=== PATIENT | female | born 1985 | race Caucasian/White ===

== ENCOUNTER 2017-04-17 02:25 | Inpatient (IN) | payer BC ==
[~2017-04-17 02:25] MED LIST: AMPICILLIN - 100 ML IVPB ONE
[2017-04-17] MEDS ORDERED: DEXTROSE 5%-LACTATED RINGERS 1,000 ML IV SCH (03:45)
[2017-04-17 03:54] LABS: BASOPHIL 0.6 % (0-2.0); EOSINOPHIL 0.4 % (0-4.5); MCH 30.5 pg (25.7-33.7); MCHC 33.3 g/dl (32.0-36.0); MEAN CELL VOLUME 91.4 fl (80-96); MEAN PLT VOLUME 12.3 fl (7.5-11.1); RDW 14.1 % (11.6-15.6); WHITE BLOOD COUNT 15.3 K/mm3 (4.0-10.0)
[2017-04-17 04:03] LABS: INR 1.04 (0.82-1.09); PROTHROMBIN TIME (PATIENT) 11.4 SEC (9.98-11.88)
[2017-04-17 04:06] LABS: ACTIVATED PTT 23.4 SECONDS (26.9-34.4)
[2017-04-17 04:12] LABS: ANION GAP 11 (8-16); CALCIUM 8.7 mg/dL (8.5-10.1); CO2 20 mmol/L (21-32); CREATININE 0.7 mg/dL (0.55-1.02); GLUCOSE,RANDOM 117 mg/dL (74-106)
[2017-04-17 04:27] LABS: PLATELET COUNT 147 K/MM3 (134-434)
[2017-04-17 04:28] VITALS: BMI 32.4
[2017-04-17 04:28] LABS: PLATELET COMMENT2 NO CLUMPING NOTED; PLATELET COMMENT3 NO CLOTTING DETECTED
[2017-04-17 04:42] LABS: HIV 1 & 2 AB NEGATIVE; HIV 1 AGp24 NEGATIVE
[2017-04-17] MEDS ORDERED: AMPICILLIN - 100 ML IVPB SCH (06:25)
[2017-04-17] MEDS: AMPICILLIN - 100 ML IVPB SCH ×5 (07:30→23:36)
[2017-04-17] MEDS ORDERED: DINOPROSTONE 10 MG VAGINAL SUPPOSITORY VG ONE (08:56)
--- NOTE | 2017-04-17 09:02 | HP ---
Past Medical History - Primary Care Physician PCP:: Miki Martínez - Admission Chief Complaint: 31yo P1 with at EGA 38w4d admitted with PROM at 1: 45am, not in labor. 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: No: Alzheimer's, CVA, Dementia, Migraine, Multiple Sclerosis, Peripheral Neuropathy, Parkinson's, Seizure, Syncope, TIA, Vertigo, Other Cardiovascular: No: AFIB, Aneurysm, Aortic Insufficiency, Aortic Stenosis, CAD, CHF, Deep Vein Thrombosis, HTN, Hyperlipdemia, PR, Mitral Insufficiency, Mitral Stenosis, Murmur, Pulmonary Hypertension, Other Pulmonary: No: Asthma, Bronchitis, Cancer, COPD, O2 Dependent, Pneumonia, Previously Intubated, Pulmonary Embolus, Pulmonary Fibrosis, Sleep Apnea, Other Gastrointestinal: No: Ascites, Cancer, Constipation, Crohn's Disease, Diverticulitis, Diverticulosis, Esophageal Varices, Gastritis, GERD, GI Bleed, Hemorrhoids, Hiatal Hernia, Inflamatory Bowel Disease, Irritable Bowel Disease, Pancreatitis, Peptic Ulcer Disease, Ulcerative Colitis, Other Hepatobiliary: No: Cirrhosis, Cholelithiasis, Cholecystitis, Choledocholithiasis , Hepatitis A, Hepatitis B, Hepatitis C, Other Renal/: No: Renal Failure, Renal Inusuff, BPH, Cancer, Hematuria, Hemodialysis , Neurogenic Bladder, Renal Calculi, UTI, Other Reproductive: Yes: Other (LEEP 2014) ...: 4 ...Para: 1 ...Term: 1 ...: 0 ...Spon : 0 ...Induced : 2 ...Multiple Gestation: 0 ...LMP: 07/21/16 ... Weeks Gestation by Dates: 38.4 ...EDC by Dates: 04/27/17 Heme/Onc: No: Anemia, B12 Deficiency, Bleeding Disorder, Cancer, Current Chemotherapy, Current Radiation Therapy, Hemochromatosis, Hypercoaguable State, Myeloproliferative Synd, Sickle Cell Disease, Sickle Cell Trait, Thrombocytopenia, Other Infectious Disease: No: AIDS, C-Diff, Herpes Zoster, HIV, MRSA, STD's, Tuberculosis, VREF, Other Psych: No: Addictions, Anxiety, Bipolar, Depression, Panic, Psychosis, Schizophrenia, Other Musculoskeletal: No: Bursitis, Chronic low back pain, Hemiparesis, Hemiplegia, Osteoarthritis, Paraplegia, Other Rheumatology: No: Fibromyalgia, Gout, Lupus, Rheumatoid Arthritis, Sarcoidosis, Vasculitis, Other ENT: No: Allergic Rhinitis, Sinusitis, Other Endocrine: No: Kiefer's Disease, Brenden's Disease, Diabetes Insipidus, Diabetes Mellitus, Hyperparathyroidism, Hyperthyroidism, Hypothyroidism, Osteopenia, SIADH, Other Dermatology: No: Basal Cell, Cellulitis, Eczema, Melanoma, Psoriasis, Squamous Cell, Other - Past Surgical History Past Surgical History: Yes: None Hx Myomectomy: No Hx Transabdominal Cerclage: No Additional Surgical History: LEEP, TOP x 2 - Smoking History Smoking history: Never smoked Have you smoked in the past 12 months: No - Alcohol/Substance Use Hx Alcohol Use: No History of Substance Use: reports: None - Social History Usual Living Arrangement: Yes: With Spouse, With Child History of Recent Travel: No Home Medications - Allergies Allergies/Adverse Reactions: Allergies Allergy/AdvReac Type Severity Reaction Status Date / Time No Known Allergies Allergy Verified 04/17/17 04:12 - Home Medications Home Medications: Ambulatory Orders NK [No Known Home Medication] 04/17/17 Family Disease History - Family Disease History Family History: Denies Review of Systems - Review of Systems Constitutional: reports: No Symptoms Eyes: reports: No Symptoms HENT: reports: No Symptoms Neck: reports: No Symptoms Cardiovascular: reports: No Symptoms Respiratory: reports: No Symptoms Gastrointestinal: reports: No Symptoms Genitourinary: reports: No Symptoms Breasts: reports: No Symptoms Reported Musculoskeletal: reports: No Symptoms Integumentary: reports: No Symptoms Neurological: reports: No Symptoms Endocrine: reports: No Symptoms Hematology/Lymphatic: reports: No Symptoms Psychiatric: reports: No Symptoms Pain Intensity: 0 Physical Exam - Maternity Vital Signs: Vital Signs Temperature 98.1 F 04/17/17 08:00 Pulse Rate 94 H 04/17/17 08:00 Respiratory Rate 18 04/17/17 08:00 Blood Pressure 129/65 04/17/17 08:00 O2 Sat by Pulse Oximetry (%) Constitutional: Yes: Well Nourished, No Distress, Calm Eyes: Yes: WNL, Conjunctiva Clear HENT: Yes: WNL, Atraumatic, Normocephalic Neck: Yes: WNL, Supple, Trachea Midline Cardiovascular: Yes: WNL, Regular Rate and Rhythm Lungs: Clear to auscultation, Normal air movement Breast(s): Yes: WNL - Abdominal Exam/OB Fundal Height: 38 Number of Fetuses: Single Presentation: Vertex Contractions: No Regularity: Irritability Intensity: Unaware Monitor Mode: External Heart Rate (range): 140 Heart Rate Location: Midline Category: I Accelerations: Non-Uniform Decelerations: None - Vaginal Exam/OB Vaginal Bleediing: No Speculum Exam: No Dilatation (cm): 1 Effacement (%): 0 Amniotic Membrane Status: Leaking Nitrazine Test: Positive Amniotic Fluid: Yes: Clear Presentation: Vertex/Position Station: -4 (Adequate pelvimetry) - Physical Exam Musculoskeletal: Yes: WNL Extremities: Yes: WNL Edema: No Integumentary: Yes: WNL Deep Tendon Reflex Grade: Normal +2 ...Motor Strength: WNL Psychiatric: Yes: WNL, Alert, Oriented - Labs Lab Results: CBC, BMP 04/17/17 03:15 04/17/17 03:15 Hemorrhage Risk Assessment - Risk Factors Medium Risk Factors: Yes: None High Risk Factors: Yes: None Risk Score: 1 Risk Level: Medium Risk Imaging - Results Ultrasound: Report Reviewed Assessment/Plan 31yo P1 with at EGA 38w4d admitted with PROM at 1:45am, not in labor. Fetus with Category I tracing. Pt with unfavorable cervical exam. Plan to proceed with cervical ripening. We had land discussion re: risks, benefits, and alternatives of labor induction. I explained the options of expectant management awaiting spontaneous labor, induction of labor, and elective section. The risks of uterine tachysystole, distress, uterine rupture, need for emergency C/S, hemorrhage, infection, scarring, etc. were discussed. We also discussed the risks of meconium aspiration, shoulder dystocia , and anesthesia options.
[2017-04-17] MEDS ORDERED: TUBERCULIN PPD 5 TU/0.1ML SYRINGE (IN PATIENT USE ONLY) ID ONE (10:00)
[2017-04-17] MEDS: DEXTROSE 5%-LACTATED RINGERS 1,000 ML IV SCH (16:00)
[2017-04-17] MEDS: OXYTOCIN 15 UNITS/ LR 250 ML 250 ML IVPB SCH (22:00)
[2017-04-18] MEDS: AMPICILLIN - 100 ML IVPB SCH ×5 (03:40→23:40)
--- NOTE | 2017-04-18 09:16 | PN ---
Ante-Partal Exam - Subjective Subjective: Patient reports contractions overnight Now comfortable Vital Signs: Vital Signs Temperature 97.9 F 04/18/17 06:05 Pulse Rate 92 H 04/18/17 08:00 Respiratory Rate 20 04/18/17 08:00 Blood Pressure 122/68 04/18/17 08:00 O2 Sat by Pulse Oximetry (%) Bleeding: No Headache: Yes Visual changes: No Right upper quadrant pain: No - Contractions Contractions: Yes Regularity: Regular Intensity: Unaware Monitor Mode: External - Exam during Labor Heart Rate: 130 Variability: Moderate Category: I Monitor Accelerations: Present Monitor Decelerations: None Exam: Vaginal Dilatation (cm): 2-3 Amniotic Membrane Status: Ruptured Amniotic Fluid: Clear Presentation: Vertex Station: -4 - Intrapartum Hemorrhage Risk Medium Risk Factors: None High Risk Factors: None Risk Score: 0 Risk Level: Low Risk - Assessment/Plan Assessment/Plan: 31 yo P1 PROM, s/p cervidil now on pitocin 1. Pitocin at 14, mild contractions Q 3-5 minutes. Cervical change noted. Will continue pitocin per protocol 2. GBS unknown - on ampicillin 3. s/p ROM clear fluid >24 H, currently afebrile, no signs of infection 4. MONAE - will give tylenol, no signs of PEC 5. Will continue expectant management
[2017-04-18] MEDS ORDERED: ACETAMINOPHEN 500 MG TABLET (FP) PO ONE (10:30)
[2017-04-18] MEDS: OXYTOCIN 15 UNITS/ LR 250 ML 250 ML IVPB SCH ×2 (14:56→22:00)
[2017-04-18] MEDS: DEXTROSE 5%-LACTATED RINGERS 1,000 ML IV SCH (14:56)
[2017-04-18] MEDS ORDERED: ELECTROLYTE-148 SOLN 1,000 ML IV ONE (22:00)
--- NOTE | 2017-04-18 22:00 | PN ---
Progress Note (short form) - Note Progress Note: cx 3 cm vx -3 no descent and dilation , prolonged Prom . cervidil and pitocin induction ,fhr cat 1, advised c/s if no futher progress
[2017-04-18] MEDS ORDERED: ONDANSETRON 4 MG/2 ML VIAL IVPB PRN (23:43)
[2017-04-19] MEDS ORDERED: diphenhydrAMINE HCL 25 MG CAPSULE (FP) PO PRN (00:59)
[2017-04-19] MEDS ORDERED: WITCH HAZEL 50% (TUCKS) 40 PAD/JAR PAD TP PRN (00:59)
[2017-04-19] MEDS ORDERED: METHYLERGONOVINE MALEATE 0.2 MG/1 ML AMP IM PRN (00:59)
[2017-04-19] MEDS ORDERED: BENZOCAINE 28 GM HEMORRHOIDAL OINTMENT PR PRN (00:59)
[2017-04-19] MEDS ORDERED: BENZOCAINE 20% 57 GM BOTTLE TP PRN (00:59)
[2017-04-19] MEDS ORDERED: IBUPROFEN 800 MG/8 ML IJ IVPB PRN (00:59)
[2017-04-19] MEDS ORDERED: oxyCODONE HCL 5 MG TABLET PO PRN (00:59)
[2017-04-19] MEDS ORDERED: OXYTOCIN 20 UNITS in 0.9% NS 1,000 ML IV SCH (01:00)
[2017-04-19] MEDS ORDERED: DEXTROSE 5%-LACTATED RINGERS 1,000 ML IV SCH (01:00)
[2017-04-19] MEDS ORDERED: CEFAZOLIN 1 GM/D5W 50 ML IVPB SCH (02:00)
[2017-04-19 04:37] LABS: ARTERIAL BLD GAS O2 SATURATION 4.5 % (90-98.9); ARTERIAL BLOOD GAS BASE EXCESS -7.1 meq/l (-2-2); ARTERIAL BLOOD GAS HCO3 24.1 meq/L (22-26); ARTERIAL BLOOD GAS PO2 7.8 mmHg (80-100); ARTERIAL BLOOD GAS pH 7.16 (7.35-7.45)
[2017-04-19 04:41] LABS: VENOUS PH 7.24 (7.32-7.42)
--- NOTE | 2017-04-19 08:23 | OP ---
DATE OF OPERATION: 04/19/2017 PREOPERATIVE DIAGNOSIS: , 38.6 weeks' gestation, prolonged premature rupture of membranes, Cervidil and Pitocin induction, failure to dilate. POSTOPERATIVE DIAGNOSIS: , 38.6 weeks' gestation, prolonged premature rupture of membranes, Cervidil and Pitocin induction, failure to dilate. PROCEDURE PERFORMED: Primary low-segment transverse section. SURGEON: Vance Montes MD WORSHIP LEADER: TANNER Queen ANESTHESIA: Spinal. ANESTHESIOLOGIST: Sangeetha Lira DO ESTIMATED BLOOD LOSS: 500 mL. DESCRIPTION OF PROCEDURE: The patient was taken to the operating room and had adequate spinal anesthesia. Abdomen and perineum were prepped and draped. A Pfannenstiel abdominal skin incision was made. The abdominal wall was cut layer by layer, until the peritoneum was exposed and incised. Upon entering the abdominal cavity, the lower uterine segment was identified and uterovesical fold of peritoneum established. The bladder was pushed down. Then, with the lower blade of the Rick retractor in the pelvis, a low transverse uterine incision was made. The incision was extended laterally. The amniotic sac was entered. Clear fluid. Head delivered. Nasopharynx was suctioned. Cord around the neck x1 reduced, and live baby was delivered without any difficulty. The placenta was delivered manually. The uterine cavity was cleaned of all remaining tissue. The uterine incision was closed in 2 layers, the 1st layer with 0 Biosyn continuous suture and the 2nd layer with 0 Biosyn imbricating the 1st layer. The bladder flap was closed with 0 Vicryl continuous suture. Both tubes and ovaries were checked and were normal. No active bleeding was seen. All the lap, sponge and instrument counts were correct. Then the peritoneum was closed with 0 Biosyn continuous suture. The muscles were brought together with interrupted suture of 0 Biosyn. The fascia was closed with 0 Biosyn continuous suture, the subcutaneous fat with interrupted suture of 0 Vicryl, and the skin was closed with sonal. The patient tolerated the procedure well, and left the OR in good condition. Tamra [id number]
[2017-04-19] MEDS: AMPICILLIN - 100 ML IVPB SCH ×2 (09:51→09:57)
[2017-04-19] MEDS: CEFAZOLIN (PRE-DOCKED) 50 ML IVPB SCH ×2 (09:55→17:30)
[2017-04-19] MEDS: SIMETHICONE 80 MG TAB.CHEW (FP) PO PRN ×2 (17:30→23:14)
[2017-04-19] MEDS: IBUPROFEN 600 MG TABLET (FP) PO PRN ×2 (17:30→23:14)
[2017-04-19] MEDS: oxyCODONE HCL 5 MG TABLET PO PRN (17:30)
[2017-04-20] MEDS ORDERED: BISACODYL 10 MG SUPP.RECT RC PRN (00:59)
[2017-04-20 07:15] LABS: BASOPHIL 0.3 % (0-2.0); EOSINOPHIL 0.5 % (0-4.5); MCH 30.7 pg (25.7-33.7); MCHC 33.3 g/dl (32.0-36.0); MEAN CELL VOLUME 92.4 fl (80-96); MEAN PLT VOLUME 11.5 fl (7.5-11.1); NEUTROPHILS 77.5 % (42.8-82.8); PLATELET COUNT 156 K/MM3 (134-434); RDW 14.5 % (11.6-15.6); WHITE BLOOD COUNT 15.7 K/mm3 (4.0-10.0)
--- NOTE | 2017-04-20 12:50 | PN ---
Progress Note (short form) - Note Progress Note: pod 1 doing well, ambulating, voids ok CBC, BMP 04/20/17 06:00 04/17/17 03:15 abdomen soft, no distension , no cva incision dry, clean no calf tenderness plan ambulate , advance diet
[2017-04-20] MEDS: SIMETHICONE 80 MG TAB.CHEW (FP) PO PRN ×2 (13:23→23:02)
[2017-04-20] MEDS: IBUPROFEN 600 MG TABLET (FP) PO PRN ×2 (13:24→23:02)
[2017-04-20] MEDS: oxyCODONE HCL 5 MG TABLET PO PRN ×2 (13:24→23:02)
--- NOTE | 2017-04-20 16:46 | PN ---
Progress Note (short form) - Note Progress Note: Anesthesiology post op check S/p c section post op day 1 under spinal anesthesia with duramorph for post op pain control Patient reports adequate pain control, no nausea or vomiting and full return of motor function. Vital Signs Temperature 99.3 F 04/19/17 21:54 Pulse Rate 84 04/19/17 21:54 Respiratory Rate 18 04/19/17 21:54 Blood Pressure 118/65 04/19/17 21:54 O2 Sat by Pulse Oximetry (%) 98 04/19/17 02:55 No sign of neurologic deficits A/P no adverse effects of anesthetic, dept of anesthesia will sign off care at this time, Feel free to re consult the department with further questions or concerns regarding pain or the anesthetic administered.
[2017-04-21 10:33] VITALS: BP 122/64; PULSE 86; TEMP 98.3
[2017-04-21] MEDS: IBUPROFEN 600 MG TABLET (FP) PO PRN (12:18)
[2017-04-21] MEDS: SIMETHICONE 80 MG TAB.CHEW (FP) PO PRN (12:19)
--- NOTE | 2017-04-21 12:51 | DS ---
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 Vital Signs: Vital Signs Temperature 98.3 F 04/21/17 09:00 Pulse Rate 86 04/21/17 09:00 Respiratory Rate 20 04/21/17 09:00 Blood Pressure 122/64 04/21/17 09:00 O2 Sat by Pulse Oximetry (%) 98 04/19/17 02:55 Constitutional: Yes: Well Nourished, No Distress, Calm Eyes: Yes: WNL, Conjunctiva Clear, EOM Intact HENT: Yes: WNL, Atraumatic, Normocephalic Neck: Yes: WNL, Supple, Trachea Midline Cardiovascular: Yes: WNL, Regular Rate and Rhythm Respiratory: Yes: WNL, Regular, CTA Bilaterally Gastrointestinal: Yes: WNL ...Rectal Exam: Yes: WNL Renal/: Yes: WNL ....Post : Yes: Uterus firm, Uterus non-tender, Slight lochia rubra Breast(s): Yes: WNL Musculoskeletal: Yes: WNL Extremities: Yes: WNL Integumentary: Yes: WNL Wound/Incision: Yes: Clean/Dry, Well Approximated, Sutures Intact Neurological: Yes: WNL, Alert, Oriented ...Motor Strength: WNL Psychiatric: Yes: WNL, Alert, Oriented Labs: CBC, BMP 04/20/17 06:00 04/17/17 03:15 Delivery - Delivery Section: Primary (no complication), Low Flap Transverse Type of Anesthesia: Spinal Episiotomy/Laceration: None EBL (cc): 500 Delivery, Single - Stages of Labor Date of Delivery: 04/19/17 Time of Delivery: 01:21 Time Placenta Delivered: 01:22 - 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 of 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/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 Maintenance Present: Yes Name: Laurel Mccann Gender: Male Weight: 6 lb 9 oz Position: Left, OP Total Hours ROM (Hrs/Mins): 47hrs/52mins - 1 Minute Total Score: 9 5 Minutes Total Score: 8 - Mcdonald Feeding Plan Initial Plan: Elected not to breastfeed exclusively throughout hospitalization Discharge Summary Reason For Visit: LABOR Condition: Good - Instructions Diet, Activity, Other Instructions: regullar diet , follow up office 1 week Referrals: Vance Montes MD [Staff Physician] - Disposition: HOME - Home Medications Comprehensive Discharge Medication List: Ambulatory Orders Ibuprofen [Motrin -] 600 mg PO QID #28 tablet 04/21/17
[2017-04-21] MEDS ORDERED: SENNOSIDES/DOCUSATE COMBO (SENNA PLUS) TABLET (UD) PO PRN (22:00)
--- NOTE | 2017-04-22 15:08 | PATH ---
Surgical Pathology Report Patient Name: JOSS LEE [facility]. Rec. 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 Specimen(s) Received PLACENTA Clinical History , 38.6 weeks, GBS unknown; IAB x2, ovarian cyst; LEEP 04/2015 Primary c/section Final Diagnosis PLACENTA, DELIVERY: FOCALLY DISRUPTED THIRD TRIMESTER PLACENTA WITH MILD PREVILLOUS, PERIVILLOUS, AND PRECHORIONIC FIBRIN DEPOSITION, THREE VESSEL UMBILICAL CORD, AND UNREMARKABLE PLACENTAL MEMBRANES. Electronically Signed Jordan East M.D. Gross Description The specimen is received fresh, labeled "placenta" and is a 444 gram, 19.5 x 17.5 x 2.0 cm placenta with attached membranes and umbilical cord. The attached membranes are mahmood, translucent with focal opacities and insert marginally. The umbilical cord measures 32 cm in length and averages 1.5 cm in diameter. The cord inserts eccentrically, 5.5 cm to the nearest margin. No true knots or strictures are identified. Cut surface of the umbilical cord reveals 3 vessels. The surface is shepherd-blue with fibrin deposition and appropriate caliber vessels. The maternal surface is red-brown with focal defects. Sectioning reveals red-brown, spongy parenchyma. No focal lesions are identified. Nitrocellulose Maker sections are submitted in three cassettes as follows: 1- membrane rolls and umbilical cord; 2-3- full thickness sections of placenta. /04/19/2017 formerly [facility]04/19/2017
== END 2017-04-21 17:10 | disposition home or self-care (01) | DRG 766 ==
LOC: JLDR 02:25 → J3W 04-19 04:00
PROVIDERS: ADMIT Obstetrics & Gynecology; ATTEND Obstetrics & Gynecology
PROC: 3E0P7GC Introduction of Other Therapeutic Substance into Female Reproductive, Via Natural or Artificial Opening (ICD-10-PCS; principal; 2017-04-19)
PROC: 10D00Z1 Extraction of Products of Conception, Low, Open Approach (ICD-10-PCS; 2017-04-19)
DX: O42.92 Full-term premature rupture of membranes, unspecified as to length of time between rupture and onset of labor (principal); O62.0 Primary inadequate contractions; Z3A.38 38 weeks gestation of pregnancy; Z37.0 Single live birth; K21.9 Gastro-esophageal reflux disease without esophagitis
CPT/HCPCS: 36415; 36600; 80048; 82803; 85025; 85610; 85730; 86593; 86850; 86900; 86901; 87389; 88307-TC